=== PATIENT | female | born 1935 | race Two or more races ===

== ENCOUNTER 2022-05-18 22:56 | Emergency (ER) | payer OTHER ==
[~2022-05-18] VITALS: Ht 152.4 cm; Wt 72.6 kg
[2022-05-19] MEDS ORDERED: VISTARIL50 MG PO (02:57)
== END 2022-05-20 | disposition home or self-care (01) ==
LOC: ER 22:56
DX: F12.929 Cannabis use, unspecified with intoxication, unspecified (principal); Z88.0 Allergy status to penicillin

== ENCOUNTER 2022-09-20 10:51 | Emergency (ER) | payer OTHER ==
[~2022-09-20] VITALS: Ht 157.5 cm; Wt 70.3 kg
[~2022-09-20 10:51] MED LIST: ACETAMINOPHEN650 M2; VISTARIL50 MG PO
== END 2022-09-20 14:28 | disposition home or self-care (01) ==
LOC: ER 10:51
DX: M62.838 Other muscle spasm (principal); Z88.0 Allergy status to penicillin

== ENCOUNTER 2022-12-15 13:03 | Outpatient (CLI) | payer OTHER | END 2022-12-15 13:04 | disposition home or self-care (01) | LOC: NUCLEAR 13:03 | PROVIDERS: ATTEND Internal Medicine | DX: Z13.820 Encounter for screening for osteoporosis (principal) ==